=== PATIENT | male | born 1975 | race Caucasian/White ===

== ENCOUNTER 2017-08-20 20:45 | Emergency (ER) | payer BC, MEDICAID ==
[~2017-08-20] VITALS: Ht 182.9 cm; Wt 90.7 kg
[~2017-08-20 20:45] MED LIST: AMOX-426 PO; HYDR-3606 PO
[2017-08-20 20:49] VITALS: BP_SYST 149
--- NOTE | 2017-08-20 20:49 | NUR ---
Patient to ER bed 6 to gown for evaluation. Side rails up. Report given to JACKSON RANGEL.
--- NOTE | 2017-08-20 20:55 | NUR ---
Pt brought in by in stable condition. Pt wheelchair to bed 6. Pt c/o LLQ abd pain 9/10 w/ sudden onset about 4-5 hours ago. Pt stated he medicated w/ [place] around 1700 but it was ineffective. Pt states he thinks he might be passing a kidney stone. +n/v -d -sob -chest pain. Placed pt on quality assurance monitor. No acute distress noted at this time, will continue to monitor.
--- NOTE | 2017-08-20 20:58 | NUR ---
Asked pt for a urine sample and he stated he is unable to give one at this time.
--- NOTE | 2017-08-20 21:05 | NUR ---
MARIANNA Leiva at bedside examining patient.
[2017-08-20] MEDS ORDERED: NACL 0.9% 1,000 ML IV ONE (21:30)
[2017-08-20] MEDS ORDERED: ONDANSETRON 4 MG ODT TAB PO ONE (21:30)
[2017-08-20] MEDS ORDERED: MORPHINE 4 MG/ML INJ. SYRINGE IVP ONE ×2 (21:30→22:30)
--- NOTE | 2017-08-20 21:30 | NUR ---
Patient vomit x 2. MD made aware, family given emesis bags.
[2017-08-20 21:41] LABS: BASOPHILS # (AUTO) 0.1 K/uL (0.0-0.2); BASOPHILS % (AUTO) 0.6 % (0.0-2.0); EOSINOPHILS # (AUTO) 0.1 K/uL (0.0-0.4); EOSINOPHILS % (AUTO) 0.4 % (0.0-4.0); HEMATOCRIT 44.6 % (36-54); HEMOGLOBIN 14.9 g/dL (14.0-18.0); LYMPHOCYTES # (AUTO) 1.2 K/uL (1.0-5.5); LYMPHOCYTES % (AUTO) 9.1 % (20.5-51.5); MEAN CORPUSCULAR HEMOGLOBIN 30 pg (27-31); MEAN CORPUSCULAR HGB CONC 33 % (32-36); MEAN CORPUSCULAR VOLUME 91 fL (79.0-98.0); MONOCYTES # (AUTO) 0.4 K/uL (0.0-1.0); MONOCYTES % (AUTO) 2.9 % (1.7-9.3); NEUTROPHILS # (AUTO) 11.2 K/uL (1.8-7.7); PLATELET COUNT (AUTO) 309 K/uL (130-430); RED BLOOD CELL COUNT(AUTO) 4.91 MIL/uL (4.2-6.2); RED CELL DISTRIBUTION WIDTH 12.6 % (9.0-15.0)
--- NOTE | 2017-08-20 22:05 | NUR ---
Patient resting in bed, vital signs stable, c/o of pain and discomfort but has not vomited since zoan. notified.
[2017-08-20 22:40] LABS: CALCIUM 9.1 mg/dL (8.4-11.0); CREATININE 1.26 mg/dL (0.55-1.30); POTASSIUM 3.4 mmol/L (3.5-5.1)
[2017-08-20 22:44] LABS: ALBUMIN 4.4 g/dL (3.4-4.8); TOTAL BILIRUBIN 0.4 mg/dL (0.0-1.0)
[2017-08-20 23:10] VITALS: BP_SYST 145
--- NOTE | 2017-08-20 23:10 | NUR ---
Patient given written and verbal discharge instructions and verbalizes understanding. ER MD discussed with patient the results and treatment provided. Patient in stable condition. ID arm band removed. IV catheter removed intact and dressing applied, no active bleeding. Rx of norco and ibuprofen given. Patient educated on pain management and to follow up with PMD. Pain Scale 3/10. Opportunity for questions provided and answered. Medication side effect fact sheet provided.
== END 2017-08-20 23:10 | disposition home or self-care (01) ==
LOC: SED 20:45
DX: N20.0 Calculus of kidney (principal); K59.00 Constipation, unspecified; Z87.442 Personal history of urinary calculi
CPT/HCPCS: 36415; 74176; 80053; 83690; 85025; 96361; 96374; 96376; 99285; J2270; J7030; Q0162

== ENCOUNTER 2019-04-01 22:04 | Emergency (ER) | payer MEDICAID ==
[~2019-04-01] VITALS: Ht 182.9 cm; Wt 93.0 kg
[~2019-04-01 22:04] MED LIST changes: -HYDR-3606 PO; +HYDR-3607 PO
[2019-04-01 22:12] VITALS: BP_SYST 156
--- NOTE | 2019-04-01 22:16 | NUR ---
Patient to ER bed 05 to gown for evaluation. Side rails up. Report given to Guillermina PAZ.
--- NOTE | 2019-04-01 22:25 | NUR ---
ER at bedside examining patient.
--- NOTE | 2019-04-01 22:30 | NUR ---
Pt came to the ED for L ankle pain 30 minutes prior to ED arrival. Reports that he was skating when injury occured. He fell and landed on his L ankle and he heard a "pop." Denies n/v/d or fever. No other complaints/injuries noted. Will cont. to monitor.
--- NOTE | 2019-04-01 22:38 | NUR ---
Radiology at bedside.
[2019-04-01] MEDS ORDERED: IBUPROFEN 600 MG TABLET PO ONE (23:15)
[2019-04-01 23:30] VITALS: BP_SYST 156
--- NOTE | 2019-04-01 23:30 | NUR ---
Patient given written and verbal discharge instructions and verbalizes understanding. ER MD Dr. Jhaveri discussed with patient the results and treatment provided. Patient in stable condition. ID arm band removed. Rx of naprosyn given. Patient educated on pain management and to follow up with PMD. Pain Scale 0/10. Opportunity for questions provided and answered. Medication side effect fact sheet provided.
== END 2019-04-01 23:30 | disposition home or self-care (01) ==
LOC: SED 22:04
DX: S93.402A Sprain of unspecified ligament of left ankle, initial encounter (principal); V00.131A Fall from skateboard, initial encounter; Y93.51 Activity, roller skating (inline) and skateboarding; Y92.89 Other specified places as the place of occurrence of the external cause; Y99.8 Other external cause status
CPT/HCPCS: 99283